=== PATIENT | male | born 1960 ===

== ENCOUNTER → 2019-08-14 | Outpatient (CLI) | payer OTHER ==
[2019-08-14 14:06] VITALS: BP 168/82; PULSE 82
--- NOTE | 2019-08-14 15:39 | P.PAINCN ---
History of Present Illness - Reason for Consult Consult date: 08/14/19 - History of Present Illness Mr. Blevisn is a 59-year-old male with type 2 diabetes who presents with left neck pain, with some radiation down his shoulder and somewhat into his arms. He is referred by an orthopedic surgeon Dr. Ambriz, potential interventions for his pain. 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 His pain is worse when he is painting looking up into the side, he does not take any medications for his pain. He has not had any pain interventions in the past. He is interested in procedures second help this neck pain. The vast majority of his pain is in his neck but he does have some pain that radiated down into his left hand. He denies any weakness or loss of balance. Past Medical History Past Medical History: Diabetes Mellitus, Hypertension Additional Past Medical History / Comment(s): prostate cancer History of Any Multi-Drug Resistant Organisms: None Reported Past Surgical History: Orthopedic Surgery, Tonsillectomy Past Anesthesia/Blood Transfusion Reactions: No Reported Reaction Past Psychological History: Anxiety Smoking Status: Current some day smoker Past Alcohol Use History: Occasional Past Drug Use History: Marijuana Additional Drug Use History / Comment(s): medical marijuana card - Past Family History Father Family Medical History: Myocardial Infarction ([place]) Mother Family Medical History: Cancer Medications and Allergies Home Medications Medication Instructions Recorded Confirmed Type Aspirin 1 tab PO DAILY 08/14/19 08/14/19 History Cyclobenzaprine HCl 10 mg PO TID PRN 08/14/19 08/14/19 History Diclofenac Sodium [Diclofenac 1 tab PO DAILY 08/14/19 08/14/19 History Sodium ER] Gemfibrozil [Lopid] 1 tab PO BID 08/14/19 08/14/19 History Glimepiride [Amaryl] 1 tab PO DAILY 08/14/19 08/14/19 History Lisinopril [Zestril] 5 mg PO DAILY 08/14/19 08/14/19 History Loratadine [Claritin] 1 tab PO DAILY 08/14/19 08/14/19 History Meloxicam [Mobic] 15 mg PO DAILY 08/14/19 08/14/19 History metFORMIN HCL [Glucophage] 2 tab PO BID 08/14/19 08/14/19 History Allergies Allergy/AdvReac Type Severity Reaction Status Date / Time No Known Allergies Allergy Verified 08/14/19 13:52 Physical Exam Vitals: Vital Signs Pulse BP Pulse Ox 08/14/19 13:53 82 168/82 97 Intake and Output 08/14/19 08/14/19 08/14/19 06:59 14:59 22:59 Other: Weight 72.575 kg Vital Signs: Reviewed in EMR GENERAL: Well appearing, in no acute distress, PSYCH: Mood and affect is appropriate. Awake, alert, and oriented SKIN: Skin color, texture, turgor normal, no rashes or lesions HEENT: Normocephalic, atraumatic. EOM intact CV: No pedal edema RESP: Respirations are unlabored, no audible wheezing GI: Abdomen non-distended MUSCULOSKELETAL: Bilateral upper and lower extremity strength is normal and symmetric. No atrophy or tone abnormalities are noted. Neck: Tenderness to palpation over cervical paraspinals on the left side. Normal cervical lordotic curve and slightly limited cervical spine range of motion Extremities: Peripheral joint ROM is full and pain free without obvious instability or laxity in all four extremities. No edema or skin discolorations noted. Gait: Gait is anantalgic NEUR: No loss of sensation is noted. Cranial nerves are grossly intact. Results Results: Cervical MRI reviewed and in her paper chart. He does have hypertrophic changes at C3-C4, C4-C5, C5-C6. Does have severe bilateral neural foraminal narrowing at C5-C6. Assessment and Plan Assessment: Assessment: 1. Cervical spondylosis 2. Cervical radicular pain 3. Diabetes Plan: 1. Explanation: Pain that he likely has 2 sources of pain, including cervical facets and cervical radicular pain. 2. Opioid agreement: None 3. Counseling: I encouraged patient to C-reactive 4. Procedures: Medial branch workup, left C3, C4, C5 5. Consultations: None 6. Investigations: Cervical MRI reviewed 7. Medications: Encouraged him to take [id number] medications 8. Disposition: For his procedure , PQRS Measure Charge Sheet Measure #226: Tobacco Use: Screen & Cessation Intervention: Pt screened for tobacco use AND intervention given Measure #111: Pneumonia Vaccination: Pneumococcal vaccine NOT administered or previously given Measure #47: Advance Care Plan: Advance care planning discussed & documented, pt chose/unable to give Measure #131: Pain Assessment & Follow-up: Pain positive & plan documented, Follow-up scheduled Measure #431: Unhealthy Alcohol Use Preventative Care & Scrn: Patient not identified as an unhealthy alcohol user PQRS Narrative: Smoking Status Current some day smoker Blood Pressure 168/82 Pain Intensity [Left Neck] 5 Hx Alcohol Use (MH) Yes: hx occational Home Medications: Ambulatory Orders Aspirin 1 tab PO DAILY 08/14/19 Cyclobenzaprine HCl 10 mg PO TID PRN 08/14/19 Diclofenac Sodium [Diclofenac Sodium ER] 1 tab PO DAILY 08/14/19 Gemfibrozil [Lopid] 1 tab PO BID 08/14/19 Glimepiride [Amaryl] 1 tab PO DAILY 08/14/19 Lisinopril [Zestril] 5 mg PO DAILY 08/14/19 Loratadine [Claritin] 1 tab PO DAILY 08/14/19 Meloxicam [Mobic] 15 mg PO DAILY 08/14/19 metFORMIN HCL [Glucophage] 2 tab PO BID 08/14/19
== END | disposition home or self-care (01) ==
LOC: PNWHC3 13:41
PROVIDERS: ATTEND Student in an Organized Health Care Education/Training Program
DX: M47.22 Other spondylosis with radiculopathy, cervical region (principal); E11.9 Type 2 diabetes mellitus without complications; I10 Essential (primary) hypertension; F17.200 Nicotine dependence, unspecified, uncomplicated; Z79.82 Long term (current) use of aspirin; Z79.1 Long term (current) use of non-steroidal anti-inflammatories (NSAID); Z79.84 Long term (current) use of oral hypoglycemic drugs
CPT/HCPCS: 99201

== ENCOUNTER 2019-09-11 07:46 | Day surgery (SDC) | payer OTHER ==
[2019-09-10 09:38] VITALS: BMI 35.3
[~2019-09-11 07:46] MED LIST: LACTATED RINGERS 1,000 ML IV SCH
[2019-09-11 08:17] VITALS: TEMP 97.2
[2019-09-11] MEDS ORDERED: LIDOCAINE 1% 20 ML VIAL (10MG/ML) FOR IV START INTRADERMA ONE (08:25)
[2019-09-11 08:30] LABS: Glucose,Whole Blood 145 mg/dL (75-99)
[2019-09-11] MEDS ORDERED: IV FLUID CONTINUATION 1,000 ML IV ONE ×2 (09:28)
--- NOTE | 2019-09-11 09:29 | P.PCN ---
Date of Procedure: 09/11/19 Procedure(s) Performed: PREOPERATIVE DIAGNOSIS: Cervical Spondylosis with Facet Arthropathy.without myelopathy POSTOPERATIVE DIAGNOSIS: Cervical Spondylosis, Facet Arthropathy. Without myelopathy PROCEDURES: Patient was scheduled to undergo C3, C4, C5 left-sided medial branch block. Procedure was aborted due to patient discomfort. ANESTHESIA: Local with 1% lidocaine; IV sedation with Versed, sedation time 15 minutes Patient was positioned prone on the procedure table, neck region was prepped and draped in the usual sterile fashion. Skin was infiltrated with 1% lidocaine using a 25-gauge needle over the C3 medial branch. Initially, lateral approach was attempted, however due to patient discomfort, needle was removed. Additional sedation was given, and procedure attempted from a posterior approach. The patient was unable to tolerate the procedure and requested us to stop. Needle was removed and procedure aborted. Patient was taken to the recovery room and monitored. He was discharged home in stable condition. Follow-up will be in clinic at next available, to discuss alternative options. Of note, he may benefit from cervical epidural steroid injection with additional sedation and PO Valium prior to procedure.
--- NOTE | 2019-09-11 09:37 | FL ---
EXAMINATION TYPE: FL guided pain mgmt statistic DATE OF EXAM: 09/11/2019 CLINICAL HISTORY: Left-sided neck pain. TECHNIQUE: Fluoroscopy. COMPARISON: None. FINDINGS: Fluoroscopic guidance was provided during pain relief procedure performed by Dr. Mccullough . A total of 5 seconds of fluoroscopic time was utilized during the procedure and single spot fluoroscopi c image is acquired. Single image acquired shows needle localization off midline in the neck. IMPRESSION: As Above.
[2019-09-11] MEDS ORDERED: KETOROLAC 30 MG/ML 1 ML VIAL IVP ONE (09:58)
[2019-09-11 10:10] VITALS: BP 155/74; PULSE 67; RESP 18
== END 2019-09-11 10:17 | disposition home or self-care (01) ==
LOC: ORPAIN 07:46
PROVIDERS: ATTEND Anesthesiology
DX: M47.22 Other spondylosis with radiculopathy, cervical region (principal); Z53.8 Procedure and treatment not carried out for other reasons; E11.9 Type 2 diabetes mellitus without complications; I10 Essential (primary) hypertension; F41.9 Anxiety disorder, unspecified; Z85.46 Personal history of malignant neoplasm of prostate; F17.200 Nicotine dependence, unspecified, uncomplicated; Z82.49 Family history of ischemic heart disease and other diseases of the circulatory system; Z80.9 Family history of malignant neoplasm, unspecified; Z79.84 Long term (current) use of oral hypoglycemic drugs; Z79.1 Long term (current) use of non-steroidal anti-inflammatories (NSAID); Z79.82 Long term (current) use of aspirin; Z79.899 Other long term (current) drug therapy
CPT/HCPCS: 64490; J2250; J1885; Q9966; 99152

== ENCOUNTER → 2019-09-30 | Outpatient (CLI) | payer OTHER ==
[2019-09-30 13:10] VITALS: BP 175/84; PULSE 78; RESP 16
--- NOTE | 2019-09-30 14:13 | P.PAINPG ---
Subjective Progress Note Date: 09/30/19 This is a follow-up visit for this 59 years old male with a history of severe neck pain in addition to the left upper extremity, he was diagnosed with cervical radiculopathy and cervical spondylosis with cervical facet arthropathy, weeks ago we tried to do diagnostic medial branch block cervical area but the procedure was aborted, as patient was complaining of severe discomfort during the procedure, patient here for follow-up visit he reported that he continued to have severe neck pain and the pain radiated to the left upper extremity associated with some numbness and tingling sensation in the left hand, patient currently on Mobic 15 mg daily he denies any side effect of the medication, he denies any fever or night sweats. Denies any change in the bowel movement or urination Objective - Vital Signs Vital signs: Vital Signs Temp Pulse 78 09/30/19 13:06 Resp 16 09/30/19 13:06 BP 175/84 09/30/19 13:06 Pulse Ox 100 09/30/19 13:06 - Exam Physical Examinations : -Constitutiona : Cooperative , not in acute distress . -HEENT : nech : supple , no Lymphadenopathy , normal thyroid size . : eyes : no ptosis , no icterus, no photophobia . - neurologic : Cranial nerve II to XII intact , no focal neurological deffecit . -psychatric : alert , oriented X 3 , appropriate affect , intact judgment and insight . -Lymphatic : no Lymphadenopathy . - musculoskeltal : Cervical Spine motor stregnth in the deltoid and biceps, normal right side , normal Left side motor stregnth biceps and the wrist extensors normal right side ,normal left side . motor stregnth in the triceps muscle . normal Right side , normal Left side deep tendon reflexes normal at the biceps , normal at Brachioradialis , normal at triceps. cervical facet loading test: Positive Bilaterally Multiple trigger points identified in the left-sided cervical paravertebral muscles Spurling test positive left side Neck distraction test positive left side. [place] sign positive left side Lumber spine moter stegnth lower extremities ,thigh and legs 5/5 Right side , 5/5 Left side Assessment and Plan Plan: Assessment and plan= cervical radiculopathy Myofascial pain syndrome and cervical area. Cervical spondylosis with cervical facet arthropathy. Patient will be good candidate to have cervical epidural steroid injections under fluoroscopy guidance at C7-T1. Patient could benefit from physical therapy and myofascial release Time with Patient: Less than 30 PQRS Measure Charge Sheet Measure #130: Documentation of Current Meds in Medical Chart: Patient's medications documented in chart Measure #226: Tobacco Use: Screen & Cessation Intervention: Pt not a tobacco user Measure #111: Pneumonia Vaccination: Pneumococcal vaccine NOT administered or previously given Measure #47: Advance Care Plan: Advance care planning discussed & documented, pt chose/unable to give Measure #412: Opioid Treatment Agreement: No documentation of signed opioid treatment agreement Measure #408: Opioid Therapy Follow-up Evaluation: Patient had NO f/u eval minimum every 3 months during opioid therapy Measure #317: Preventitive Care & Scrn High Bld Press & F/U: Pre-hypertensive or hypertensive BP documented, pt will f/u with PCP Measure #128: Body Mass Index (BMI) Screening & Follow-up: BMI documented ABOVE normal parameters - f/u documented Measure #131: Pain Assessment & Follow-up: Pain positive & plan documented, Follow-up scheduled Measure #431: Unhealthy Alcohol Use Preventative Care & Scrn: Patient not identified as an unhealthy alcohol user PQRS Narrative: Smoking Status Current every day smoker Blood Pressure 175/84 Pain Intensity [Neck] 6 Scale Used Numeric (1 - 10) Hx Alcohol Use (MH) No: hx occational Home Medications: Ambulatory Orders Diclofenac Sodium [Diclofenac Sodium ER] 100 mg PO DAILY 08/14/19 Gemfibrozil [Lopid] 600 mg PO BID 08/14/19 Glimepiride [Amaryl] 1 mg PO DAILY 08/14/19 Lisinopril [Zestril] 5 mg PO DAILY 08/14/19 Loratadine [Claritin] 10 mg PO DAILY 08/14/19 Meloxicam [Mobic] 15 mg PO DAILY 08/14/19 metFORMIN HCL [Glucophage] 1,000 mg PO BID 08/14/19 Controlled Substance Measures - Controlled Substance Measures Is patient prescribed a controlled substance at discharge?: No
== END ==
LOC: PNWHC3 12:42
PROVIDERS: ATTEND Specialist
DX: M47.22 Other spondylosis with radiculopathy, cervical region (principal); M46.92 Unspecified inflammatory spondylopathy, cervical region; M79.18 Myalgia, other site; F17.200 Nicotine dependence, unspecified, uncomplicated; Z79.899 Other long term (current) drug therapy; Z79.1 Long term (current) use of non-steroidal anti-inflammatories (NSAID); Z79.84 Long term (current) use of oral hypoglycemic drugs
CPT/HCPCS: 99211